=== PATIENT | female | born 1995 | race Caucasian/White ===

== ENCOUNTER 2017-01-20 14:06 | Emergency (ER) | payer MEDICAID, OTHER ==
[~2017-01-20] VITALS: Ht 162.6 cm; Wt 81.0 kg
[~2017-01-20 14:06] MED LIST: ACYC800T PO; CITA40TA4 PO; METR-1 PO; SPRI28TA PO
[2017-01-20 14:13] VITALS: BP 122/78; PULSE 83; RESP 16; TEMP 98.2; O2SAT 97
--- NOTE | 2017-01-20 14:35 | PD ---
HPI Chief Complaint: [place] Hold Problem/Complaint Time Seen by Provider: 14:23 Travel History International Travel<30 days: No Contact w/Intl Traveler<30days: No Traveled to known affect area: No History of Present Illness HPI 21-year-old female complains of foreign body in vagina for about 18 hours or so. She reports insertion of a tampon followed by inability to move it. No discharge or bleeding. No fever or pain. Onset sudden. Timing constant. Modifying factor. Patient states her fingers are too short term removed. PFSH Past Medical History ADHD: No Anxiety: Yes Depression: Yes Cancer: No Cardiovascular Problems: No Developmental Delay: No Diabetes: No Diminished Hearing: No Psychiatric: No Immunizations Current: Yes Migraines: No Seizures: No Thyroid Disease: No Ulcer: No ?: Not LMP: NOW : 0 Past Surgical History Other Surgery: No Social History Alcohol Use: Yes Tobacco Use: No Substance Use: Yes (COCAINE) Allergies-Medications (Allergen,Severity, Reaction): Coded Allergies: bee venom protein (honey bee) (Unverified Allergy, Mild, 01/20/17) Reported Meds & Prescriptions Reported Meds & Active Scripts Active Citalopram (Citalopram Hydrobromide) 40 Mg Tab 40 Mg PO DAILY Sprintec 28 (Norgestimate-Ethinyl Estradiol) 0.25-35 mg-Mcg Tab 1 Tab PO DAILY Review of Systems Except as stated in HPI: all other systems reviewed are Neg General / Constitutional: No: Fever Physical Exam Narrative GENERAL: 21 F, WNWD, NAD : Foreign body c/w tampon adjacent to cervix. no abnormal discharge or bleeding. external genitalia normal. SKIN: Warm and dry. HEAD: Atraumatic. Normocephalic. EYES: Pupils equal and round. No scleral icterus. No injection or drainage. ENT: No nasal bleeding or discharge. Mucous membranes pink and moist. NECK: Trachea midline. No JVD. CARDIOVASCULAR: Regular rate and rhythm. RESPIRATORY: No accessory muscle use. Clear to auscultation. Breath sounds equal bilaterally. GASTROINTESTINAL: Abdomen soft, non-tender, nondistended. Hepatic and splenic margins not palpable. MUSCULOSKELETAL: Extremities without clubbing, cyanosis, or edema. No obvious deformities. NEUROLOGICAL: Awake and alert. No obvious cranial nerve deficits. Motor grossly within normal limits. Five out of 5 muscle strength in the arms and legs. Normal speech. Data Data Last Documented VS Vital Signs Date Time Temp Pulse Resp B/P (MAP) Pulse Ox O2 Delivery O2 Flow Rate FiO2 01/20/17 14:13 98.2 83 16 122/78 (93) 97 VS reviewed MDM Medical Decision Making Medical Screen Exam Complete: Yes Emergency Medical Condition: Yes Medical Record Reviewed: Yes Differential Diagnosis Foreign body in vagina, toxic shock syndrome, mass Narrative Course Tampon removed at bedside Pt ready for discharge Diagnosis Primary Impression: Superficial foreign body vagina without majr opn wnd without infection Qualified Codes: S30.854A - Superficial foreign body of vagina and vulva, initial encounter Additional Instructions: You have a choice when it comes to health care, and we are glad that you chose [facility]. Hopefully, we have met your expectations on today's visit. You are welcome to return to [facility] at any time, as we are committed to meeting the health care needs of our community. Med/Other Pt SpecificInfo: No Change to Meds Disposition: 01 DISCHARGE HOME Condition: Stable Garry Renae MD Jan 20, 2017 14:35
== END 2017-01-20 14:59 | disposition home or self-care (01) ==
LOC: PHED 14:06
DX: T19.2XXA Foreign body in vulva and vagina, initial encounter (principal)
CPT/HCPCS: 99282

== ENCOUNTER 2017-03-29 03:21 | Emergency (ER) | payer MEDICAID, OTHER ==
[~2017-03-29] VITALS: Ht 162.6 cm; Wt 68.0 kg
[~2017-03-29 03:21] MED LIST changes: -ACYC800T PO; -METR-1 PO
--- NOTE | 2017-03-29 03:32 | PD ---
HPI Chief Complaint: BA Time Seen by Provider: 03:27 Travel History International Travel<30 days: No Contact w/Intl Traveler<30days: No Traveled to known affect area: No History of Present Illness HPI 21-year-old female brought to the emergency department under [place] act for psychiatric evaluation. Patient is intoxicated. States she has been having difficult time dealing with her mother's and she does binge drink occasionally. She denies suicidal or homicidal ideations states she has been more depressed since losing her mother. Patient was driving against a one-way this evening when police stopped her. They were taking her to [facility] however the patient vomited in the car so they brought her to the emergency department for medical clearance. Patient denies any acute medical needs. She has no other symptoms to report at this time. [facility] Past Medical History ADHD: No Anxiety: Yes Depression: Yes Cancer: No Cardiovascular Problems: No Developmental Delay: No Diabetes: No Diminished Hearing: No Psychiatric: No Immunizations Current: Yes Migraines: No Seizures: No Thyroid Disease: No Ulcer: No : 0 Past Surgical History Other Surgery: No Social History Alcohol Use: Yes Tobacco Use: No Substance Use: Yes (COCAINE) Allergies-Medications (Allergen,Severity, Reaction): Coded Allergies: bee venom protein (honey bee) (Unverified Allergy, Mild, 03/29/17) Reported Meds & Prescriptions Reported Meds & Active Scripts Active Citalopram (Citalopram Hydrobromide) 40 Mg Tab 40 Mg PO DAILY Sprintec 28 (Norgestimate-Ethinyl Estradiol) 0.25-35 mg-Mcg Tab 1 Tab PO DAILY Review of Systems Except as stated in HPI: all other systems reviewed are Neg Physical Exam Narrative GENERAL: Well-nourished clinically intoxicated female patient, in no acute distress. SKIN: Focused skin assessment warm/dry. HEAD: Atraumatic. Normocephalic. EYES: Pupils equal and round. No scleral icterus. No injection or drainage. ENT: No nasal bleeding or discharge. Mucous membranes pink and moist. NECK: Trachea midline. No JVD. CARDIOVASCULAR: Regular rate and rhythm. No murmur appreciated. RESPIRATORY: No accessory muscle use. Clear to auscultation. Breath sounds equal bilaterally. GASTROINTESTINAL: Abdomen soft, non-tender, nondistended. Hepatic and splenic margins not palpable. MUSCULOSKELETAL: No obvious deformities. No clubbing. No cyanosis. No edema. NEUROLOGICAL: Awake and alert. No obvious cranial nerve deficits. Motor grossly within normal limits. Normal speech. Data Data Last Documented VS Vital Signs Date Time Temp Pulse Resp B/P (MAP) Pulse Ox O2 Delivery O2 Flow Rate FiO2 03/29/17 03:43 98.2 108 16 123/71 (88) 98 Orders Orders Complete Blood Count With Diff (03/29/17 03:27) Thyroid Stimulating Hormone (03/29/17 03:27) Basic Metabolic Panel (Bmp) (03/29/17 03:27) Ed Urine Pregnancytest Poc (03/29/17 03:27) Psych Screen (03/29/17 03:27) Drug Screen, Random Urine (03/29/17 03:27) Alcohol (Ethanol) (03/29/17 03:27) Labs Laboratory Tests Test 03/29/17 03:48 White Blood Count 9.4 TH/MM3 Red Blood Count 4.79 MIL/MM3 Hemoglobin 14.3 GM/DL Hematocrit 42.2 % Mean Corpuscular Volume 88.2 FL Mean Corpuscular Hemoglobin 29.9 PG Mean Corpuscular Hemoglobin Concent 33.9 % Red Cell Distribution Width 13.8 % Platelet Count 221 TH/MM3 Mean Platelet Volume 6.7 FL Neutrophils (%) (Auto) 50.2 % Lymphocytes (%) (Auto) 40.1 % Monocytes (%) (Auto) 6.5 % Eosinophils (%) (Auto) 2.9 % Basophils (%) (Auto) 0.3 % Neutrophils # (Auto) 4.7 TH/MM3 Lymphocytes # (Auto) 3.8 TH/MM3 Monocytes # (Auto) 0.6 TH/MM3 Eosinophils # (Auto) 0.3 TH/MM3 Basophils # (Auto) 0.0 TH/MM3 CBC Comment DIFF FINAL Differential Comment Blood Urea Nitrogen 16 MG/DL Creatinine 0.93 MG/DL Random Glucose 100 MG/DL Calcium Level 8.4 MG/DL Sodium Level 145 MEQ/L Potassium Level 3.5 MEQ/L Chloride Level 110 MEQ/L Carbon Dioxide Level 26.3 MEQ/L Anion Gap 9 MEQ/L Estimat Glomerular Filtration Rate 77 ML/MIN Thyroid Stimulating Hormone 3rd Gen 7.630 uIU/ML Urine Opiates Screen NEG Urine Barbiturates Screen NEG Urine Amphetamines Screen NEG Urine Benzodiazepines Screen NEG Urine Cocaine Screen NEG Urine Cannabinoids Screen NEG Ethyl Alcohol Level 271 MG/DL [facility] Medical Decision Making Medical Screen Exam Complete: Yes Emergency Medical Condition: Yes Medical Record Reviewed: Yes Differential Diagnosis Mood disorder versus personality disorder versus substance induced mood disorder versus polysubstance abuse Narrative Course 21-year-old female presents to emergency department for evaluation under [place] act. Patient appears clinically intoxicated. She admits to "binge drinking" this evening. She denies suicidal homicidal ideations. Lab work is complete and reviewed. Patient does have hypothyroidism and toxicology confirms intoxication. Patient is medically cleared to undergo psychiatric screening for further evaluation and disposition. Mental health screening discussed with the patient. Psychiatric screen ordered. Laboratory Tests Test 03/29/17 03:48 White Blood Count 9.4 TH/MM3 Red Blood Count 4.79 MIL/MM3 Hemoglobin 14.3 GM/DL Hematocrit 42.2 % Mean Corpuscular Volume 88.2 FL Mean Corpuscular Hemoglobin 29.9 PG Mean Corpuscular Hemoglobin Concent 33.9 % Red Cell Distribution Width 13.8 % Platelet Count 221 TH/MM3 Mean Platelet Volume 6.7 FL Neutrophils (%) (Auto) 50.2 % Lymphocytes (%) (Auto) 40.1 % Monocytes (%) (Auto) 6.5 % Eosinophils (%) (Auto) 2.9 % Basophils (%) (Auto) 0.3 % Neutrophils # (Auto) 4.7 TH/MM3 Lymphocytes # (Auto) 3.8 TH/MM3 Monocytes # (Auto) 0.6 TH/MM3 Eosinophils # (Auto) 0.3 TH/MM3 Basophils # (Auto) 0.0 TH/MM3 CBC Comment DIFF FINAL Differential Comment Blood Urea Nitrogen 16 MG/DL Creatinine 0.93 MG/DL Random Glucose 100 MG/DL Calcium Level 8.4 MG/DL Sodium Level 145 MEQ/L Potassium Level 3.5 MEQ/L Chloride Level 110 MEQ/L Carbon Dioxide Level 26.3 MEQ/L Anion Gap 9 MEQ/L Estimat Glomerular Filtration Rate 77 ML/MIN Thyroid Stimulating Hormone 3rd Gen 7.630 uIU/ML Urine Opiates Screen NEG Urine Barbiturates Screen NEG Urine Amphetamines Screen NEG Urine Benzodiazepines Screen NEG Urine Cocaine Screen NEG Urine Cannabinoids Screen NEG Ethyl Alcohol Level 271 MG/DL Diagnosis Primary Impression: Substance induced mood disorder Additional Impression: Hypothyroidism Qualified Codes: E03.9 - Hypothyroidism, unspecified Condition: Stable Trang Hines 31, 2018 03:32
[2017-03-29 03:43] VITALS: BP 123/71; PULSE 108; RESP 16; TEMP 98.2; O2SAT 98
[2017-03-29 04:03] LABS: AUTOMATED NEUTROPHIL # 4.7 TH/MM3 (1.8-7.7); BASOPHIL % 0.3 % (0.0-2.0); EOSINOPHIL # 0.3 TH/MM3 (0-0.4); EOSINOPHIL % 2.9 % (0.0-4.0); HEMATOCRIT 42.2 % (35.0-46.0); HEMOGLOBIN 14.3 GM/DL (11.6-15.3); LYMPH % 40.1 % (9.0-44.0); LYMPHOCYTE # 3.8 TH/MM3 (1.0-4.8); MEAN CELL VOLUME 88.2 FL (80.0-100.0); MEAN CORPUSCULAR HEMOGLOBIN 29.9 PG (27.0-34.0); MEAN CORPUSCULAR HGB CONC 33.9 % (32.0-36.0); MEAN PLATELET VOLUME 6.7 FL (7.0-11.0); MONO % 6.5 % (0.0-8.0); MONOCYTE # 0.6 TH/MM3 (0-0.9); NEUT % 50.2 % (16.0-70.0); PLATELET COUNT 221 TH/MM3 (150-450); RED BLOOD COUNT 4.79 MIL/MM3 (4.00-5.30); RED CELL DISTRIBUTION WIDTH 13.8 % (11.6-17.2); WHITE BLOOD COUNT 9.4 TH/MM3 (4.0-11.0)
[2017-03-29 04:24] LABS: BICARBONATE 26.3 MEQ/L (21.0-32.0); CALCIUM 8.4 MG/DL (8.5-10.1); CREATININE 0.93 MG/DL (0.50-1.00)
[2017-03-29 06:30] VITALS: BP 112/65; PULSE 104; RESP 16; O2SAT 98
[2017-03-29] MEDS ORDERED: ONDANSETRON ODT 4 MG TAB PO ONE (07:00)
[2017-03-29] MEDS ORDERED: IBUPROFEN 800 MG TAB PO ONE (07:00)
--- NOTE | 2017-03-29 09:36 | PD ---
History of Present Illness Chief Complaint: Psychiatric Symptoms Time Seen by Provider: 09:00 Travel History International Travel<30 Days: No Contact w/Intl Traveler<30days: No Known affected area: No History of Present Illness: 21-year-old female known to this physician. Apparently she was intoxicated last night, driving the wrong way on the highway and became suicidal. At this point she remains very distraught and tearful. Her mother approximately 2 years ago and she continues to have great difficulty with that loss. She has been attempting to work and protect her father from her emotional difficulties. However, she does not care what happens to her at this time. This physician feels she remains at high risk for self-harm and is therefore recommending hospitalization at [facility]. PFSH Past Medical History ADHD: No Anxiety: Yes Depression: Yes Cancer: No Cardiovascular Problems: No Developmental Delay: No Diabetes: No Diminished Hearing: No Psychiatric: No Immunizations Current: Yes Migraines: No Seizures: No Thyroid Disease: No Ulcer: No Tetanus Vaccination: Unknown Influenza Vaccination: No ?: Unknown : 0 Past Surgical History Other Surgery: No Psychiatric History Psychiatric History Hx Psychiatric Treatment: DEPRESSION HBS MULTIPLE TIMES History of Inpatient Treatment: Yes Guns or firearms in home: No Social History Hx Alcohol Use: Yes Hx Tobacco Use: No Hx Substance Use: Yes (COCAINE) Substance Use Type: Marijuana Hx of Substance Use Treatment: No Allergies-Medications (Allergen,Severity, Reaction): Coded Allergies: bee venom protein (honey bee) (Unverified Allergy, Mild, 03/29/17) Reported Meds & Prescriptions Reported Meds & Active Scripts Active Citalopram (Citalopram Hydrobromide) 40 Mg Tab 40 Mg PO DAILY Sprintec 28 (Norgestimate-Ethinyl Estradiol) 0.25-35 mg-Mcg Tab 1 Tab PO DAILY Review of Systems Psychiatric: COMPLAINS OF: Anxiety, Confusion, Depression, Suicidal Ideation Except as stated in HPI: all other systems reviewed are Neg Mental Status Examination Appearance: Appropriate Consciousness: Alert Orientation: x4 Motor Activity: Normal gait Speech: Unremarkable Language: Adequate Fund of Knowledge: Adequate Attention and Concentration: Adequate Memory: Unremarkable Mood: Sad, Anxious Affect: Sad, Anxious Thought Process & Associations: Intact Thought Content: Appropriate Hallucination Type: None Delusion Type: None Suicidal Ideation: Yes Suicidal Plan: Yes Suicidal Intention: Yes Homicidal Ideation: No Homicidal Plan: No Homicidal Intention: No Insight: Fair Judgment: Impulsive MDM Medical Decision Making Medical Record Reviewed: Yes Assessment/Plan Patient interviewed at bedside. Electronic medical record reviewed. Patient known to this physician. Case discussed with nurse Afshan. Plan is to send patient to [facility]. Orders Orders Complete Blood Count With Diff (03/29/17 03:27) Thyroid Stimulating Hormone (03/29/17 03:27) Basic Metabolic Panel (Bmp) (03/29/17 03:27) Ed Urine Pregnancytest Poc (03/29/17 03:27) Psych Screen (03/29/17 03:27) Drug Screen, Random Urine (03/29/17 03:27) Alcohol (Ethanol) (03/29/17 03:27) Ibuprofen (Motrin) (03/29/17 07:00) Ondansetron Odt (Zofran Odt) (03/29/17 07:00) Diet Regular Basic (03/29/17 Breakfast) Results Vital Signs Date Time Temp Pulse Resp B/P (MAP) Pulse Ox O2 Delivery O2 Flow Rate FiO2 03/29/17 06:30 104 16 112/65 (81) 98 Room Air 03/29/17 03:43 98.2 108 16 123/71 (88) 98 Laboratory Tests Test 03/29/17 03:48 White Blood Count 9.4 Red Blood Count 4.79 Hemoglobin 14.3 Hematocrit 42.2 Mean Corpuscular Volume 88.2 Mean Corpuscular Hemoglobin 29.9 Mean Corpuscular Hemoglobin Concent 33.9 Red Cell Distribution Width 13.8 Platelet Count 221 Mean Platelet Volume 6.7 Neutrophils (%) (Auto) 50.2 Lymphocytes (%) (Auto) 40.1 Monocytes (%) (Auto) 6.5 Eosinophils (%) (Auto) 2.9 Basophils (%) (Auto) 0.3 Neutrophils # (Auto) 4.7 Lymphocytes # (Auto) 3.8 Monocytes # (Auto) 0.6 Eosinophils # (Auto) 0.3 Basophils # (Auto) 0.0 CBC Comment DIFF FINAL Differential Comment Blood Urea Nitrogen 16 Creatinine 0.93 Random Glucose 100 Calcium Level 8.4 Sodium Level 145 Potassium Level 3.5 Chloride Level 110 Carbon Dioxide Level 26.3 Anion Gap 9 Estimat Glomerular Filtration Rate 77 Thyroid Stimulating Hormone 3rd Gen 7.630 Urine Opiates Screen NEG Urine Barbiturates Screen NEG Urine Amphetamines Screen NEG Urine Benzodiazepines Screen NEG Urine Cocaine Screen NEG Urine Cannabinoids Screen NEG Ethyl Alcohol Level 271 Diagnosis Primary Impression: Adjustment disorder with depressed mood Condition: Stable Harpreet Khoury MD Mar 29, 2017 09:36
[2017-03-29 11:08] VITALS: BP 128/78; PULSE 80; RESP 18; O2SAT 100
--- NOTE | 2017-03-29 15:40 | PD ---
Data Data Last Documented VS Vital Signs Date Time Temp Pulse Resp B/P (MAP) Pulse Ox O2 Delivery O2 Flow Rate FiO2 03/29/17 11:08 80 18 128/78 (95) 100 Room Air 03/29/17 03:43 98.2 Orders Orders Complete Blood Count With Diff (03/29/17 03:27) Thyroid Stimulating Hormone (03/29/17 03:27) Basic Metabolic Panel (Bmp) (03/29/17 03:27) Ed Urine Pregnancytest Poc (03/29/17 03:27) Psych Screen (03/29/17 03:27) Drug Screen, Random Urine (03/29/17 03:27) Alcohol (Ethanol) (03/29/17 03:27) Ibuprofen (Motrin) (03/29/17 07:00) Ondansetron Odt (Zofran Odt) (03/29/17 07:00) Diet Regular Basic (03/29/17 Breakfast) Diet Regular Basic (03/29/17 Lunch) Diet Regular Basic (03/29/17 Dinner) Ed Discharge Order (03/29/17 15:39) Labs Laboratory Tests Test 03/29/17 03:48 White Blood Count 9.4 TH/MM3 Red Blood Count 4.79 MIL/MM3 Hemoglobin 14.3 GM/DL Hematocrit 42.2 % Mean Corpuscular Volume 88.2 FL Mean Corpuscular Hemoglobin 29.9 PG Mean Corpuscular Hemoglobin Concent 33.9 % Red Cell Distribution Width 13.8 % Platelet Count 221 TH/MM3 Mean Platelet Volume 6.7 FL Neutrophils (%) (Auto) 50.2 % Lymphocytes (%) (Auto) 40.1 % Monocytes (%) (Auto) 6.5 % Eosinophils (%) (Auto) 2.9 % Basophils (%) (Auto) 0.3 % Neutrophils # (Auto) 4.7 TH/MM3 Lymphocytes # (Auto) 3.8 TH/MM3 Monocytes # (Auto) 0.6 TH/MM3 Eosinophils # (Auto) 0.3 TH/MM3 Basophils # (Auto) 0.0 TH/MM3 CBC Comment DIFF FINAL Differential Comment Blood Urea Nitrogen 16 MG/DL Creatinine 0.93 MG/DL Random Glucose 100 MG/DL Calcium Level 8.4 MG/DL Sodium Level 145 MEQ/L Potassium Level 3.5 MEQ/L Chloride Level 110 MEQ/L Carbon Dioxide Level 26.3 MEQ/L Anion Gap 9 MEQ/L Estimat Glomerular Filtration Rate 77 ML/MIN Thyroid Stimulating Hormone 3rd Gen 7.630 uIU/ML Urine Opiates Screen NEG Urine Barbiturates Screen NEG Urine Amphetamines Screen NEG Urine Benzodiazepines Screen NEG Urine Cocaine Screen NEG Urine Cannabinoids Screen NEG Ethyl Alcohol Level 271 MG/DL MDM Supervised Visit with [facility]: No Narrative Course Patient being moved to [facility]. Previously medically cleared. Diagnosis Primary Impression: Adjustment disorder with depressed mood Disposition: 70 TRANSFER TO OTHER FACILITY Condition: Stable Abdiel Wei MD Mar 29, 2017 15:40
== END 2017-03-29 16:46 ==
LOC: NEPD 03:21 → NEPJ 16:46
DX: F43.21 Adjustment disorder with depressed mood (principal); E03.9 Hypothyroidism, unspecified; F10.929 Alcohol use, unspecified with intoxication, unspecified; Y90.8 Blood alcohol level of 240 mg/100 ml or more; Z79.899 Other long term (current) drug therapy
CPT/HCPCS: 80048; 80307; 84443; 84703; 85025; 99285